=== PATIENT | female | born 1935 | race Caucasian/White ===

== ENCOUNTER → 2017-03-25 | Outpatient (CLI) | payer OTHER | LOC: BMCIMAGING 09:09 | PROVIDERS: ATTEND Internal Medicine Cardiovascular Disease | DX: I71.4 Abdominal aortic aneurysm, without rupture (principal) ==

== ENCOUNTER → 2017-03-30 | Outpatient (CLI) | payer OTHER ==
[~2017-03-30] MED LIST: IOPAMIDOL (ISOVUE 370) 100 ML BTL IV ONE
== END ==
LOC: FIMAGING 11:00
PROVIDERS: ATTEND Internal Medicine Cardiovascular Disease
DX: I71.4 Abdominal aortic aneurysm, without rupture (principal)
CPT/HCPCS: 74174; Q9967

== ENCOUNTER 2017-07-20 10:32 | Observation (INO) | payer OTHER ==
--- NOTE | 2017-07-20 11:28 | CPEKG ---
Heart Rate: 68 RR Interval: 882 P-R Interval: 160 QRSD Interval: 84 QT Interval: 376 QTC Interval: 400 P [place]: -27 QRS [place]: 111 T Wave [place]: 151 EKG Severity - ABNORMAL ECG - EKG Impression: SINUS RHYTHM EKG Impression: RIGHT AXIS DEVIATION EKG Impression: LOW VOLTAGE IN FRONTAL LEADS EKG Impression: NONSPECIFIC T ABNORMALITIES, LATERAL LEADS Electronically Signed By: Missael Bull 20-Jul-2017 12:07:41
--- NOTE | 2017-07-20 11:46 | EDPHY ---
H & P Time Seen by Provider: 07/20/17 11:31 HPI/ROS: CHIEF COMPLAINT: Chest heaviness and fatigue HISTORY OF PRESENT ILLNESS: Patient has history of coronary disease with last stented in January of 2016 with 2 in her LAD, had angiography in May of last year which showed patency of all stents. She presents with 3 weeks of fatigue and jaw tightness with exertion which is much worse over the past 2 days. Associated with her arms and legs feeling heavy including difficulty picking up grocery bags on Wednesday of this week. Symptoms worse with exertion and moderate to severe in severity. She did attend the [employer] game on Wednesday and walked without that much difficulty but it has been worse over the past 48 hours. REVIEW OF SYSTEMS: Eye: no change in vision ENT: no sore throat Cardiac: No palpitations or syncope Pulmonary: No coughing but mild shortness of breath with exertion Abdomen: no vomiting, diarrhea, abdominal pain, does have some nausea Musculoskeletal: no back pain Skin: no rash Neuro: no headache Constitutional: no fever : no urinary symptoms A comprehensive 10 point review of systems is otherwise negative aside from elements mentioned in the history of present illness. PAST MEDICAL HISTORY: Coronary disease with stenting as noted above, hypercholesterolemia, appendectomy, hysterectomy. Social history: Nonsmoker here with her son General Appearance: Alert and conversant, cooperative. Eyes: No scleral icterus. ENT, Mouth: Normal mucous membranes. Respiratory: Normal respiratory effort, breath sounds equal, lungs are clear to auscultation. Cardiovascular: Regular rate and rhythm. Gastrointestinal: Abdomen is soft and non tender. Neurological: Alert and oriented x3. Normally conversant. Face symmetric, normal movement and sensation in all extremities. Skin: Warm and dry, no rashes. Musculoskeletal: No peripheral edema and no joint swelling. No calf tenderness Psychiatric: Not agitated. Emergency Department course/MDM: No aspirin as the patient is on Plavix. Moderate suspicion for acute coronary syndrome. Plan for admission with cardiology consultation. Smoking Status: Light smoker Constitutional: Initial Vital Signs Temperature (C) 36.5 C 07/20/17 10:48 Heart Rate 78 07/20/17 10:48 Respiratory Rate 18 07/20/17 10:48 Blood Pressure 108/73 07/20/17 10:48 O2 Sat (%) 94 07/20/17 10:48 O2 Delivery Mode Room Air Allergies/Adverse Reactions: No Known Allergies Allergy (Verified 07/20/17 10:47) Home Medications: Medication Instructions Recorded Aspirin EC [Aspirin EC 81 mg (*)] 81 mg PO DAILY 06/27/13 Atorvastatin Calcium [Lipitor 10 10 mg PO DAILY 06/27/13 mg (*)] Levothyroxine [Synthroid 88 mcg 88 mcg PO HS 06/27/13 (*)] Multivitamins [Multivitamin (*)] 1 tab PO DAILY 06/27/13 Cholecalciferol Vit D3 [Vitamin D3 1,000 units PO DAILY 01/15/16 (*)] [place]-3 Fatty Acids [Fish Oil 1000 1,000 mg PO DAILY 01/15/16 mg (*)] Ascorbic Acid [Vitamin C 500 mg 500 mg PO DAILY 05/26/16 (*)] Carboxymethylcellulose 1% [Refresh 1 drop EACHEYE DAILY PRN 05/26/16 Celluvisc (*)] Clopidogrel Bisulfate [Plavix (*)] 75 mg PO Q2D 05/26/16 Herbals/Supplements -Info Only 1 ea PO DAILY 05/26/16 Melatonin [Melatonin 3 MG (*)] 3 mg PO HS 05/26/16 celeCOXIB [CeleBREX] 100 mg PO DAILY 05/26/16 Medical Decision Making - Diagnostics EKG Interpretation: 12-lead EKG interpreted by me; official reading is in trace master. My interpretation is sinus rhythm rate 68 with right axis and low voltage in frontal leads. Imaging Results: Imaging Impressions Chest X-Ray 07/20/17 11:46 Impression: Stable chest. 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 Differential Diagnosis: Differential considered including but not limited to anemia, metabolic abnormality, unstable angina, pulmonary or dental infection. - Data Points Laboratory Results: Laboratory Results 07/20/17 11:46 07/20/17 11:46 07/20/17 07/20/17 11:46 11:46 WBC 13.31 10^3/uL H 10^3/uL (3.80-9.50) RBC 5.17 10^6/uL 10^6/uL (4.18-5.33) Hgb 16.5 g/dL H g/dL (12.6-16.3) Hct 49.5 % H % (38.0-47.0) MCV 95.7 fL fL (81.5-99.8) MCH 31.9 pg pg (27.9-34.1) MCHC 33.3 g/dL g/dL (32.4-36.7) RDW 13.9 % % (11.5-15.2) Plt Count 263 10^3/uL 10^3/uL (150-400) MPV 10.4 fL fL (8.7-11.7) Neut % (Auto) 73.5 % % (39.3-74.2) Lymph % (Auto) 19.5 % % (15.0-45.0) [place] % (Auto) 5.3 % % (4.5-13.0) Eos % (Auto) 0.4 % L % (0.6-7.6) Baso % (Auto) 0.8 % % (0.3-1.7) Nucleat RBC Rel Count 0.0 % % (0.0-0.2) Absolute Neuts (auto) 9.79 10^3/uL H 10^3/uL (1.70-6.50) Absolute Lymphs (auto) 2.60 10^3/uL 10^3/uL (1.00-3.00) Absolute Monos (auto) 0.71 10^3/uL 10^3/uL (0.30-0.80) Absolute Eos (auto) 0.05 10^3/uL 10^3/uL (0.03-0.40) Absolute Basos (auto) 0.10 10^3/uL 10^3/uL (0.02-0.10) Absolute Nucleated RBC 0.00 10^3/uL 10^3/uL (0-0.01) Immature Gran % 0.5 % % (0.0-1.1) Immature Gran # 0.06 10^3/uL 10^3/uL (0.00-0.10) Sodium 141 mEq/L mEq/L (134-144) Potassium 4.3 mEq/L mEq/L (3.5-5.2) Chloride 105 mEq/L mEq/L (97-110) Carbon Dioxide 25 mEq/l mEq/l (22-31) Anion Gap 11 mEq/L mEq/L (8-16) BUN 24 mg/dL H mg/dL (7-23) Creatinine 1.1 mg/dL H mg/dL (0.6-1.0) Estimated GFR 47 Glucose 103 mg/dL H mg/dL (70-100) Calcium 9.7 mg/dL mg/dL (8.5-10.4) Troponin I < 0.012 ng/mL ng/mL (0.000-0.034) Departure - Departure Disposition: [facility] Inpatient Acute Clinical Impression: Neck pain, bilateral, Unstable angina Condition: Good
[2017-07-20 11:52] LABS: % IMMATURE GRANULYOCYTES 0.5 % (0.0-1.1); ABSOLUTE IMMATURE GRANULOCYTES 0.06 10^3/uL (0.00-0.10); ADD DIFF? NO; ADD MORPH? NO; ADD SCAN? NO; ATYPICAL LYMPHOCYTE FLAG 0 (0-99); FRAGMENT RBC FLAG 0 (0-99); HEMATOCRIT 49.5 % (38.0-47.0); HEMOGLOBIN 16.5 g/dL (12.6-16.3); LEFT SHIFT FLG 0 (0-99); LIPEMIA HEMOLYSIS FLAG 80 (0-99); MEAN CELL HEMOGLOBIN 31.9 pg (27.9-34.1); MEAN CELL HEMOGLOBIN CONCENTR. 33.3 g/dL (32.4-36.7); MEAN CELL VOLUME 95.7 fL (81.5-99.8); MEAN PLATELET VOLUME 10.4 fL (8.7-11.7); PLATELET CLUMPS FLAG 10 (0-99); PLATELET COUNT 263 10^3/uL (150-400); RED BLOOD CELL COUNT 5.17 10^6/uL (4.18-5.33); RED CELL DISTRIBUTION WIDTH 13.9 % (11.5-15.2)
[2017-07-20 12:01] LABS: ANION GAP 11 mEq/L (8-16); CALCIUM 9.7 mg/dL (8.5-10.4); CARBON DIOXIDE 25 mEq/l (22-31); CHLORIDE 105 mEq/L (97-110); CREATININE 1.1 mg/dL (0.6-1.0); GLOMERULAR FILTRATION RATE 47; GLUCOSE 103 mg/dL (70-100); POTASSIUM 4.3 mEq/L (3.5-5.2); SODIUM 141 mEq/L (134-144)
[2017-07-20 12:13] LABS: TROPONIN I < 0.012 ng/mL (0.000-0.034)
[2017-07-20] MEDS ORDERED: ONDANSETRON 4 MG/2 ML VIAL IVP PRN (14:31)
[2017-07-20] MEDS ORDERED: ACETAMINOPHEN 325 MG TAB PO PRN (14:31)
[2017-07-20] MEDS ORDERED: ONDANSETRON DISINTEGRATING 4 MG TAB PO PRN (14:31)
[2017-07-20] MEDS ORDERED: CARBOXYMETHYLCELLULOSE 1% 0.4 ML DROPERETTE EACHEYE PRN (14:33)
[2017-07-20] MEDS: ENOXAPARIN 40 MG/0.4 ML SYR SC SCH (14:45)
[2017-07-20] MEDS ORDERED: diphenhydrAMINE 25 MG CAP PO ONE (14:51)
[2017-07-20] MEDS ORDERED: TEMAZEPAM 15 MG CAP PO PRN (14:51)
[2017-07-20] MEDS ORDERED: DIAZEPAM 5 MG TAB PO ONE (14:51)
[2017-07-20] MEDS ORDERED: FAMOTIDINE 20 MG TAB PO ONE (14:51)
[2017-07-20] MEDS ORDERED: NITROGLYCERIN 0.4 MG BTL SL PRN (14:51)
[2017-07-20] MEDS ORDERED: LIDOCAINE 1% 300 MG/30 ML SDV ONE (14:52)
[2017-07-20] MEDS ORDERED: fentaNYL 100 MCG/2 ML INJ ONE (14:53)
[2017-07-20] MEDS ORDERED: HEPARIN 10,000 UNIT/10 ML MDV ONE (14:53)
[2017-07-20] MEDS ORDERED: VERAPAMIL 5 MG/2 ML VIAL ONE (14:53)
[2017-07-20] MEDS ORDERED: MIDAZOLAM 2 MG/2 ML VIAL ONE (14:53)
--- NOTE | 2017-07-20 14:53 | PDPROPOC ---
Sedation Plan of Care Sedation Plan of Care: vital signs stable, mental status noted, patient educated of risks, benefits, alternatives, patient can tolerate sedation ASA Classification: ASA 2 Mallampati Score: Class 1 332 Rule: 332
[2017-07-20] MEDS ORDERED: IOPAMIDOL (ISOVUE-370) 150 ML BTL IV ONE (14:54)
--- NOTE | 2017-07-20 14:57 | PDCARCONS ---
Cardiology Consult Reason for Consult: Chest pain Chief Complaint: Jaw pain and fatigue Requesting Physician: Hospitalist History of Present Illness: 81yo female, known CAD s/p PCI with several week history of progressive shortness of breath, chest tightness, fatigue and jaw pain, typical of how she felt prior to PCI. Denies PND, orthopne. No palpitations or syncope. No other illness recently. History Information - Allergies/Home Medication List Allergies/Adverse Reactions: No Known Allergies Allergy (Verified 07/20/17 10:47) Home Medications: Aspirin EC [Aspirin EC 81 mg (*)] 81 mg PO DAILY 06/27/13 [Last Taken 07/20/17 10:00] Atorvastatin Calcium [Lipitor 10 mg (*)] 10 mg PO DAILY 06/27/13 [Last Taken 03/31 10:00] Levothyroxine [Synthroid 88 mcg (*)] 88 mcg PO HS 06/27/13 [Last Taken 07/19/17 22:30] Multivitamins [Multivitamin (*)] 1 tab PO DAILY 06/27/13 [Last Taken 07/20/17 10 :00] Cholecalciferol Vit D3 [Vitamin D3 (*)] 1,000 units PO DAILY 01/15/16 [Last Taken 07/20/17 10:00] [place]-3 Fatty Acids [Fish Oil 1000 mg (*)] 1,000 mg PO DAILY 01/15/16 [Last Taken 07/20/17 10:00] Ascorbic Acid [Vitamin C 500 mg (*)] 500 mg PO DAILY 05/26/16 [Last Taken 10:00] Carboxymethylcellulose 1% [Refresh Celluvisc (*)] 1 drop EACHEYE DAILY PRN 05/26 [Last Taken 07/20/17 10:00] Clopidogrel Bisulfate [Plavix (*)] 75 mg PO Q2D 05/26/16 [Last Taken 07/19/17 10 :00] Herbals/Supplements -Info Only 1 ea PO DAILY 05/26/16 [Last Taken Unknown] Melatonin [Melatonin 3 MG (*)] 3 mg PO HS 05/26/16 [Last Taken 07/19/17 22:00] celeCOXIB [CeleBREX] 100 mg PO DAILY 05/26/16 [Last Taken 07/20/17 10:00] I have personally reviewed and updated: family history, medical history, social history, surgical history - Past Medical History coronary artery disease - Surgical History Reports: coronary stent - Family History Positive for: non-pertinent - Social History Smoking Status: Light smoker Cardiac History - Cardiac History Past Cardiac History: CAD Cardiac Risk Factors: lipidemia Timing/Duration: Weeks Severity: moderate Severity Scale: 7 Location: substernal Activities at Onset: activity Modifying Factors: improves with: exercise, rest Associated Symptoms: loss of appetite, malaise, shortness of breath, weakness MIRNA Risk Evaluation age greater or equal to 65: yes greater or equal to 3 CAD risk factors: yes known CAD(stenosis greater or eqaul to 50%): yes ASA use in past 7 days: yes severe angina(greater or equal to 2 episodes in 24hrs): yes EKG ST changes greater or equal to 0.5mm: no positive cardiac marker: no Total Score: 5 MIRNA Score: 26.2% risk Physical Exam Temp Pulse Resp BP Pulse Ox 36.6 C 76 17 153/79 H 99 07/20/17 14:49 07/20/17 14:49 07/20/17 14:49 07/20/17 14:49 07/20/17 14:49 O2 (L/minute) 99 Lab and Imaging 07/20/17 11:46 07/20/17 11:46 WBC 13.31 10^3/uL (3.80-9.50) H 07/20/17 11:46 RBC 5.17 10^6/uL (4.18-5.33) 07/20/17 11:46 Hgb 16.5 g/dL (12.6-16.3) H 07/20/17 11:46 Hct 49.5 % (38.0-47.0) H 07/20/17 11:46 MCV 95.7 fL (81.5-99.8) 07/20/17 11:46 MCH 31.9 pg (27.9-34.1) 07/20/17 11:46 MCHC 33.3 g/dL (32.4-36.7) 07/20/17 11:46 RDW 13.9 % (11.5-15.2) 07/20/17 11:46 Plt Count 263 10^3/uL (150-400) 07/20/17 11:46 MPV 10.4 fL (8.7-11.7) 07/20/17 11:46 Neut % (Auto) 73.5 % (39.3-74.2) 07/20/17 11:46 Lymph % (Auto) 19.5 % (15.0-45.0) 07/20/17 11:46 [place] % (Auto) 5.3 % (4.5-13.0) 07/20/17 11:46 Eos % (Auto) 0.4 % (0.6-7.6) L 07/20/17 11:46 Baso % (Auto) 0.8 % (0.3-1.7) 07/20/17 11:46 Nucleat RBC Rel Count 0.0 % (0.0-0.2) 07/20/17 11:46 Absolute Neuts (auto) 9.79 10^3/uL (1.70-6.50) H 07/20/17 11:46 Absolute Lymphs (auto) 2.60 10^3/uL (1.00-3.00) 07/20/17 11:46 Absolute Monos (auto) 0.71 10^3/uL (0.30-0.80) 07/20/17 11:46 Absolute Eos (auto) 0.05 10^3/uL (0.03-0.40) 07/20/17 11:46 Absolute Basos (auto) 0.10 10^3/uL (0.02-0.10) 07/20/17 11:46 Absolute Nucleated RBC 0.00 10^3/uL (0-0.01) 07/20/17 11:46 Immature Gran % 0.5 % (0.0-1.1) 07/20/17 11:46 Immature Gran # 0.06 10^3/uL (0.00-0.10) 07/20/17 11:46 Sodium 141 mEq/L (134-144) 07/20/17 11:46 Potassium 4.3 mEq/L (3.5-5.2) 07/20/17 11:46 Chloride 105 mEq/L (97-110) 07/20/17 11:46 Carbon Dioxide 25 mEq/l (22-31) 07/20/17 11:46 Anion Gap 11 mEq/L (8-16) 07/20/17 11:46 BUN 24 mg/dL (7-23) H 07/20/17 11:46 Creatinine 1.1 mg/dL (0.6-1.0) H 07/20/17 11:46 Estimated GFR 47 07/20/17 11:46 Glucose 103 mg/dL (70-100) H 07/20/17 11:46 Calcium 9.7 mg/dL (8.5-10.4) 07/20/17 11:46 Troponin I < 0.012 ng/mL (0.000-0.034) 07/20/17 11:46 Visualized and Interpreted Chest x-ray results: Yes EKG Interpretation: Positive for: other (low voltage. no st changes) A/P Assessment: 81 yo known, CAD hx. of PCI with recurrent angina. Low voltage on ecg unclear etiology. Will plan for a dx. angiogram from the left wrist. Echo to exclude pericardial effusion. Broaden DDX as needed. Plan: 1. Angiogram. 2. Echo Review of Systems - Review of Systems Constitutional: malaise, weakness. denies: chills, diaphoresis, fever EENTM: no symptoms reported Respiratory: shortness of breath. denies: cough, orthopnea, wheezing Cardiac: chest pain. denies: edema, irregular heart rate, lightheadedness, palpitations, syncope Gastrointestinal/Abdominal: no symptoms reported, other (loss of appetite) Genitourinary: no symptoms Musculoskelatal: no symptoms Skin: no symptoms Neurological: no symptoms Hematologic/Lymphatic: no symptoms reported Immunologic/allergic: no symptoms reported
[2017-07-20] MEDS ORDERED: NS 1,000 ML IV SCH (15:00)
--- NOTE | 2017-07-20 15:12 | GHP ---
[f rep st] HISTORY AND PHYSICAL DATE OF ADMISSION: 07/20/2017 CHIEF COMPLAINT: Fatigue and jaw tightness. HISTORY OF PRESENT ILLNESS: An 81-year-old female with a history of coronary artery disease, status post LAD stenting x2 in 2016, who presents with symptoms that she says are similar to her last myoc ardial infarction. The patient reports, over the course of the last 2-3 weeks, experiencing progres sing fatigue and lethargy, which is uncharacteristic for her, as well as progressing jaw tightness t hat is similar to her last AK. Patient denies any specific chest pain. Has had the sensation of pa lpitations, but when she checks her pulse, it is not rapid. Notes very dramatic fatigue with minima l exertion, requiring her to sit even after simple grocery shopping, which she says typically she wo uld be able to do on her own. Additionally describes feeling unsteady on her feet. When she has th e symptoms of fatigue, she is also experiencing shortness of breath, however denies any orthopnea or PND. Patient denies any changes in her bowel habits, diarrhea, blood in her stools, dysuria, hemat uria, lower extremity edema, vision changes, fevers, or chills. PAST MEDICAL HISTORY: 1. Coronary artery disease, status post LAD stenting. 2. Hypothyroidism. 3. Osteoarthritis. 4. 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 SOCIAL HISTORY: Positive for tobacco x70 years; still smoking 5 cigarettes a day. Daily alcohol 1- 2 drinks. FAMILY HISTORY: Positive for coronary artery disease. Father with an AK in his 30s. ADVANCED DIRECTIVES: Patient is full code, full tube. Her sons would be her medical decision-maker s. REVIEW OF SYSTEMS: A 10-point review of systems is negative with the exception of that reported in the HPI. PHYSICAL EXAMINATION: VITAL SIGNS: Blood pressure is 141/78, heart rate 78, respiratory rate 18, 9 5% on room air, 36.5. GENERAL: This is a healthy-appearing elderly female, sitting up in bed. TARA NT: Notable for moist mucous membranes. Eye exam is negative for any icterus. CARDIAC: Regular ra te and rhythm. No murmurs are noted. PULMONARY: Clear to auscultation bilaterally. GASTROINTESTI NAL: Positive bowel sounds. Abdomen is soft. MUSCULOSKELETAL: Negative for any lower extremity ed ralph. SKIN: Notable for scattered bruising in various stages of healing. NEUROLOGIC: She is alert and oriented x3. PSYCHIATRIC: She is grumpy but cooperative. DATA: White count 13.3 (appears near baselines recently), hematocrit 49.5, platelet count 263. Cre atinine 1.1 (last checked at 1.2). Troponin less than 0.012. Chest x-ray, which I personally revie wed and interpreted, shows no acute infiltrates or edema. EKG, which I personally reviewed and inte rpreted, shows sinus rhythm, normal axis, and normal intervals with no acute ST-T changes. Of note, there is very low voltage in the inferior leads, partially similar compared to old. ASSESSMENT AND PLAN: This is an 81-year-old female with known coronary artery disease presenting wi th jaw pain. 1. Atypical pain/jaw pain, certainly concerning for an anginal equivalent based on the fact that mi meyer had similar symptoms with her previous myocardial infarction. Initial troponin and EKG are re assuring. Have consulted Cardiology. Will rule the patient out this evening and suspect move forwa rd with likely Lexiscan. If the patient's troponin bumps, suspect patient will be a candidate for c ardiac catheterization. Cardiology will follow along. Will continue her outpatient cardiac medicat ions. 2. Hypertension. Patient's blood pressures are currently controlled well. Continue her home medic ations. 3. Hypothyroidism. Will continue her home dosing of levothyroxine. 4. Coronary artery disease. Patient is on aspirin and Plavix q.2 days, as well as atorvastatin. T hese will be continued overnight. ,. 5. Prophylaxis with Lovenox. 6. Diet. Cardiac. DISPOSITION: I expect in less than 2 midnights if the patient rules out and has normal stress testi ng in the morning. I have discussed the case with Cardiology. They will consult and leave recommen dations related to risk stratification. /[id number]/MODL
[2017-07-20 15:15] LABS: INR 0.98 (0.83-1.16); PROTIME(PATIENT) 12.9 SEC (12.0-15.0)
[2017-07-20 15:16] LABS: APTT 25.3 SEC (23.0-38.0)
[2017-07-20 15:17] LABS: CHOLESTEROL 164 mg/dL (140-220); CHOLESTEROL/HDL RATIO 3.09 RATIO (1.00-4.44); HIGH DENSITY LIPOPROTEIN 53 mg/dL (40-85); LDL/HDL RATIO 1.25 RATIO (1.00-3.22); LOW DENSITY LIPOPROTEIN 66 mg/dL (80-100); MAGNESIUM 2.1 mg/dL (1.6-2.3); NON-HIGH DENSITY LIPOPROTEIN 111 mg/dL (90-129); TRIGLYCERIDE 226 mg/dL (35-135); VERY LOW DENSITY LIPOPROTEINS 45 mg/dL (8-25)
[2017-07-20] MEDS ORDERED: ATROPINE SULFATE 1 MG/10 ML SYR IVP PRN (15:44)
--- NOTE | 2017-07-20 15:48 | PDDXCAT ---
Diagnostic Cath Note - . Date: 07/20/17 [employer] Supervisor: Malvin Indication: CCC Class III and IV angina on medical treatment - Procedure Access: left wrist Procedure: left heart catheterization, coronary angiography, left ventriculogram - Materials Left Heart Cath size: 5F Left Heart Cath materials: JL3.5, JR4.0, pigtail - Findings-Left Heart Catheterization LM: Unobstructed LAD: Stents widely patent with luminal irregularities LCX: Stents widely patent with luminal irregularities RCA: Dominant: Luminal irregularities 20-30%. EDP: 10 mm of mercury LVEF: 60% with lateral hypokinesis Wall motion: Anterolateral hypokinetic segment Complications: None Estimated blood loss: <50ml Closure method: TR Band Assessment: 1. Widely patent site of prior stenting involving the LAD and circumflex. 2. Moderate nonobstructive atherosclerotic cardiovascular disease. 3. Normal left ventricular systolic function with normal filling pressures. Plan: Continue secondary prevention clinical follow-up. Broad differential diagnosis for symptom complex. Patient Problems: Problems Problem Status Onset Unstable angina Acute Coronary artery disease Acute
[2017-07-20] MEDS ORDERED: MELATONIN 3 MG TAB PO SCH (21:00)
[2017-07-20] MEDS ORDERED: LEVOTHYROXINE 88 MCG TAB PO SCH (21:00)
[2017-07-21 04:55] LABS: ANION GAP 9 mEq/L (8-16); CARBON DIOXIDE 25 mEq/l (22-31); CHLORIDE 105 mEq/L (97-110); CREATININE 1.1 mg/dL (0.6-1.0); GLOMERULAR FILTRATION RATE 47; GLUCOSE 97 mg/dL (70-100); POTASSIUM 4.3 mEq/L (3.5-5.2); SODIUM 139 mEq/L (134-144)
[2017-07-21] MEDS: ENOXAPARIN 40 MG/0.4 ML SYR SC SCH (08:49)
[2017-07-21] MEDS ORDERED: MULTIVITAMINS 1 EACH TAB PO SCH (09:00)
[2017-07-21] MEDS ORDERED: Herbals/Supplements -Info Only PO SCH (09:00)
[2017-07-21] MEDS ORDERED: ASPIRIN EC 81 MG TAB PO SCH (09:00)
[2017-07-21] MEDS ORDERED: ATORVASTATIN CALCIUM 10 MG TAB PO SCH (09:00)
[2017-07-21] MEDS ORDERED: ASCORBIC ACID 500 MG TAB PO SCH (09:00)
[2017-07-21] MEDS ORDERED: OMEGA-3 FATTY ACIDS 1,000 MG CAP PO SCH (09:00)
[2017-07-21] MEDS ORDERED: CHOLECALCIFEROL VIT D3 1,000 UNITS TAB PO SCH (09:00)
[2017-07-21] MEDS ORDERED: IOPAMIDOL (ISOVUE 370) 100 ML BTL IV ONE (11:36)
[2017-07-21 12:07] VITALS: BP 110/66; PULSE 79; RESP 14; TEMP 98.5; O2SAT 92
--- NOTE | 2017-07-21 16:47 | ECHO ---
[id number] + + [address] : : [place] [address] : : [phone] + + Adult Echocardiographic Report + ---------+ :Name: CASSIDY JOEL BStudy Date: 07/20/2017 04:22 PM : : Hospital Admission Number: [id number] tion: CVC: :: 1935 Gender: Female Height: 66 i n : :Age: 81 yrs Race: WH Weight: 135 lb : :Reason For Study: Low voltage of EKG : : BSA: 1.7 met ers2 : + ---------+ MMode/2D Measurements & Calculations IVSd: 0.64 cm LVIDd: 4.5 cm FS: 24.7 % Ao root diam: LVPWd: 0.83 cm LVIDs: 3.4 cm EDV(Teich): 3.0 cm 90.1 ml LA dimension: ESV(Teich): 2.5 cm 45.8 ml EF(Teich): 49.1 % LVLd ap4: 7.5 cm SV(MOD-sp4): EDV(MOD-sp4): 22.0 ml 34.0 ml LVLs ap4: 6.3 cm ESV(MOD-sp4): 12.0 ml EF(MOD-sp4): 64.7 % Normal Measurement Values: + + :LVIDd (3.5-5.7cm) IVSd (0.6-1.1cm) LVPWd (0.6-1.1cm) Aortic Root (2.0-3.7cm)Left Atrium (1.5-4.0cm): :LV Vol(d) (76-115ml) LV Vol(s) (29-48ml) Ejec Fraction (50-65%)PV Hugo (0.6- 1.2m/s) TV Hugo (0.4-1.0m/s) : :MV E Hugo (0.8-1.0m/s)MV A Hugo (0.3-1.0m/s)LVOT Hugo (0.7-1.2m/s) Asc Ao Hugo ( 0.9-1.8m/s) : + + Doppler Measurements & Calculations MV E max hugo: 50.8 cm/sec Ao mean P.0 mmHg MV A max hugo: 69.1 cm/sec Ao V2 mean: 65.4 cm/sec MV E/A: 0.74 Ao V2 VTI: 19.3 cm Left Ventricle The left ventricle is normal in size. There is normal left ventricular wall thickness. Left ventricular systolic function is normal. Ejection Fraction = 60-65%. No regional wall motion abnormalities noted. Right Ventricle The right ventricle is normal in size and function. Atria The left atrial size is normal. Right atrial size is normal. The interatrial septum is intact with no evidence for an atrial septal defect. Mitral Valve The mitral valve is normal in structure and function. There is no evidence of mitral valve prolapse. There is no mitral valve stenosis. There is mild mitral regurgitation. Tricuspid Valve Normal tricuspid valve. Aortic Valve The aortic valve opens well. There is no aortic stenosis. Trace aortic regurgitation. Pulmonic Valve The pulmonic valve is normal in structure and function. There is no pulmonic valvular regurgitation. Great Vessels The aortic root is normal size. Pericardium/Pleural trivial pericardial effusion. Conclusion A complete two-dimensional transthoracic echocardiogram was performed (2D, M-mode, Doppler and color flow Doppler). Left ventricular systolic function is normal. Ejection Fraction = 60-65%. There is mild mitral regurgitation. Trace aortic regurgitation. trivial pericardial effusion. Final Reading Physician: Vanessa Wellington signed on 07/21/2017 04:46 PM Ordering Physician: KARMEN LAST Performed By: Otilia Márquez RDCS
--- NOTE | 2017-07-21 18:12 | GDS ---
[f rep st] DISCHARGE SUMMARY DISCHARGE DIAGNOSES: 1. Chest pain and dyspnea, not related to coronary artery disease. 2. History of coronary artery disease. 3. Hypothyroidism. HISTORY: This is an 81-year-old female with a history of coronary artery disease, who presented with symptoms that were similar to previous AR. She had lethargy and some pain in her jaw. HOSPITAL COURSE: Patient was admitted and had an angiogram done by Cardiology. She had patent stent s and no new obstructive coronary disease. She also had a CT scan of her chest, which did not show p ulmonary embolism but did show a little bit of emphysema. She is very much wanting to go home, and s he will be discharged home today. /[id number]/MODL
[2017-07-22] MEDS ORDERED: CLOPIDOGREL BISULFATE 75 MG TAB PO SCH (09:00)
== END 2017-07-21 14:46 | disposition home or self-care (01) ==
LOC: F2W 17:27
PROVIDERS: ADMIT Hospitalist; ATTEND Internal Medicine
PROC: B2151ZZ Fluoroscopy of Left Heart using Low Osmolar Contrast (ICD-10-PCS; principal; 2017-07-20)
PROC: B2111ZZ Fluoroscopy of Multiple Coronary Arteries using Low Osmolar Contrast (ICD-10-PCS; principal; 2017-07-20)
PROC: 4A023N7 Measurement of Cardiac Sampling and Pressure, Left Heart, Percutaneous Approach (ICD-10-PCS; principal; 2017-07-20)
DX: I25.119 Atherosclerotic heart disease of native coronary artery with unspecified angina pectoris (principal); I71.4 Abdominal aortic aneurysm, without rupture; J84.10 Pulmonary fibrosis, unspecified; E03.9 Hypothyroidism, unspecified; M54.2 Cervicalgia; M19.90 Unspecified osteoarthritis, unspecified site; F17.210 Nicotine dependence, cigarettes, uncomplicated; I10 Essential (primary) hypertension; Z95.5 Presence of coronary angioplasty implant and graft; Z82.49 Family history of ischemic heart disease and other diseases of the circulatory system
CPT/HCPCS: 71020; 71275; 93005; 93306; 93458; 97161; 97165; 99285; C1769; G0378; G8978; G8979; G8980; G8987; G8988; G8989; J1644; J1650; J2250; J3010; Q9967

== ENCOUNTER 2018-03-14 10:43 | Observation (INO) | payer OTHER ==
--- NOTE | 2018-03-14 10:58 | CPEKG ---
Heart Rate: 89 RR Interval: 674 P-R Interval: 160 QRSD Interval: 82 QT Interval: 356 QTC Interval: 434 P [place]: 41 QRS [place]: 47 T Wave [place]: 72 EKG Severity - BORDERLINE ECG - EKG Impression: SINUS RHYTHM EKG Impression: PROBABLE LEFT ATRIAL ABNORMALITY Electronically Signed By: Peggy Peck 14-Mar-2018 14:52:47
[2018-03-14] MEDS ORDERED: NS 500 ML IV ONE (10:59)
[2018-03-14 11:11] LABS: PLATELET COUNT 283 10^3/uL (150-400)
--- NOTE | 2018-03-14 11:15 | EDPHY ---
H & P Time Seen by Provider: 03/14/18 11:01 HPI/ROS: HPI Shortness of breath, arms and legs feel heavy. 82-year-old female by private vehicle with . This patient is a patient of Dr. Lindsay. She comes the emergency department complaining of progressively worsening shortness of breath with exertion over the last 2-3 weeks. She reports over the last 2 days having a sensation of tightness in her left jaw. She reports this is similar to how she felt when she had her 1st heart attack number of years ago. She also reports having a sensation of her arms and legs feeling heavy and also generalized fatigue. No chest pain. She was told to come to the emergency department by her primary care physician. She reports that she sleeps on her side at night. She does use home oxygen at night only. ROS: Constitutional: No fever, no chills. As above. Eyes: No discharge. No changes in vision. ENT: No sore throat. No nasal congestion or rhinorrhea. Respiratory: No cough. As above. Cardiac: No chest pain, no palpitations. Gastrointestinal: No abdominal pain, no vomiting, no diarrhea. Genitourinary: No hematuria. No dysuria or increased frequency with urination. Musculoskeletal: No back pain. No neck pain. No myalgias or arthralgias. As above. Skin: No rashes. Neurological: No headache. No focal weakness or altered sensation. Past medical history: Coronary artery disease with multiple stents. Recent stents placed LAD 02/12/2016. Her welt insole channeler is Dr. Jose Dhillon. Hyperlipidemia, appendectomy, hysterectomy. Social history: Here with her son who is [id number]. She currently has a DNR DNI status. Nonsmoker. No alcohol. Physical Exam: General Appearance: Alert, no distress. This patient is responding to questions appropriately and in full sentences. This patient appears well- hydrated and well-nourished. Eyes: Pupils equal and round no pallor or injection. No lid edema, erythema or injection. Respiratory: There are no retractions, lungs are clear to auscultation with good air movement bilaterally. Cardiovascular: Regular rate and rhythm. No murmur. Gastrointestinal: Abdomen is soft and nontender, no masses, bowel sounds normal. No focal tenderness at McBurney's point. No Crocker sign. Neurological: Motor sensory function is grossly intact. Cranial nerves are normal. Gait is normal. Skin: Warm and dry, no rashes. Musculoskeletal: Neck is supple and nontender. As above. Extremities are symmetrical. All joints range without pain or impingement. Psychiatric: No agitation. No depression. Database: EKG: EKG time is 10:56 a.m.; EKG shows a narrow complex normal sinus rhythm with a ventricular rate of 89. The TN, QRS, QT intervals are within normal limits. There are no ST-T wave changes indicative of ischemic or injury pattern. No evidence of right heart strain. Interpreted by me. Imaging: Chest x-ray AP portable; the cardiac mediastinal silhouette is unremarkable. No evidence of infiltrate or pneumothorax. Chronic airway disease. No acute cardiopulmonary disease process noted. Interpreted by me. CT angiogram of chest: No evidence of pulmonary embolism, chronic interstitial lung disease noted. Left upper lobe lesion noted to be larger than previous study. Please see radiologist's report for further details. Results discussed with staff radiologist Dr. Jaylen Grossman. Procedures: Emergency department course: IV placed. She was placed on a panel monitor. Vital signs reviewed. EKG obtained and reviewed by myself. She is currently comfortable and denies any complaints. 12:55 p.m., patient re-evaluated. Resting comfortably at this time. Denies any shortness of breath or chest pain at this time. Discussed results of emergency department workup with her and her son. All of their questions were answered. Hospitalist was paged. Patient endorses admission. 1:10 p.m., spoke with hospitalist service. Case discussed in detail. Patient accepted for admission by Dr. Hernandez. Her remaining emergency department course under my care has been uneventful. She was admitted in stable condition to the hospitalist service. Differential Diagnosis: The differential diagnosis on this patient includes but is not limited to CHF, pulmonary embolism, pneumonia, acute coronary syndrome, pneumonia. This represents a partial list of diagnoses considered. These considerations are based on history, physical exam, past history, reassessment and diagnostic testing. Smoking Status: Light smoker Constitutional: Initial Vital Signs Temperature (C) 36.5 C 03/14/18 10:48 Heart Rate 92 03/14/18 10:48 Respiratory Rate 18 03/14/18 10:48 Blood Pressure 94/73 L 03/14/18 10:48 O2 Sat (%) 91 L 03/14/18 10:48 O2 Delivery Mode Room Air Allergies/Adverse Reactions: No Known Allergies Allergy (Verified 03/14/18 10:47) Home Medications: Medication Instructions Recorded Aspirin EC [Aspirin EC 81 mg (*)] 81 mg PO HS 06/27/13 Atorvastatin Calcium [Lipitor 10 10 mg PO DAILY10 06/27/13 mg (*)] Multivitamins [Multivitamin (*)] 1 tab PO DAILY10 06/27/13 Cholecalciferol Vit D3 [Vitamin D3 1,000 units PO DAILY10 01/15/16 (*)] [place]-3 Fatty Acids [Fish Oil 1000 1,000 mg PO DAILY10 01/15/16 mg (*)] Ascorbic Acid [Vitamin C 500 mg 500 mg PO DAILY10 05/26/16 (*)] Carboxymethylcellulose 1% [Refresh 1 drop EACHEYE BID 05/26/16 Celluvisc (*)] Herbals/Supplements -Info Only 1 ea PO DAILY 05/26/16 Folic Acid [Folic Acid 1 MG (*)] 1 mg PO DAILY10 03/14/18 Levothyroxine [Synthroid 88 mcg 88 mcg PO HS 03/14/18 (*)] celeCOXIB [Celebrex (*)] 200 mg PO DAILY10 03/14/18 Medical Decision Making - Diagnostics Imaging Results: Imaging Impressions Chest X-Ray 03/14/18 11:00 Impression: COPD with mild perihilar bronchitis and chronic bibasilar interstitial fibrosis. Chest/Thorax CTA 03/14/18 11:50 Impression: 1. No evidence of thrombopulmonary embolic disease. 2. Evidence of underlying interstitial lung disease with a stable appearance more predominant in both lower lobes. There is however a scar like focal density posteriorly in the left upper lobe toward the apex which has increased in size, now measuring 9 to 10 mm. Recommend PET scan for further evaluation to exclude a primary lung malignancy. 3. Incompletely visualized known abdominal aortic aneurysm. Evidence of atherosclerotic change in the thoracic aortocoronary arteries. Results called and discussed with Peggy Peck MD, at 03/14/2018, 13: 06. - Data Points Laboratory Results: Laboratory Results 03/14/18 11:00 03/14/18 11:00 03/14/18 03/14/18 03/14/18 12:10 11:00 11:00 WBC RBC Hgb Hct MCV MCH MCHC RDW Plt Count MPV Neut % (Auto) Lymph % (Auto) [place] % (Auto) Eos % (Auto) Baso % (Auto) Nucleat RBC Rel Count Absolute Neuts (auto) Absolute Lymphs (auto) Absolute Monos (auto) Absolute Eos (auto) Absolute Basos (auto) Absolute Nucleated RBC Immature Gran % Immature Gran # PT 13.2 SEC SEC (12.0-15.0) INR 0.98 (0.83-1.16) APTT 25.1 SEC SEC (23.0-38.0) D-Dimer 1.11 ug/mLFEU H ug/mLFEU (0.00-0.50) Sodium 143 mEq/L mEq/L (135-145) Potassium 4.5 mEq/L mEq/L (3.5-5.2) Chloride 103 mEq/L mEq/L (97-110) Carbon Dioxide 28 mEq/l mEq/l (22-31) Anion Gap 12 mEq/L mEq/L (8-16) BUN 32 mg/dL H mg/dL (7-23) Creatinine 1.2 mg/dL H mg/dL (0.6-1.0) Estimated GFR 43 Glucose 108 mg/dL H mg/dL (70-100) Calcium 9.6 mg/dL mg/dL (8.5-10.4) Creatine Kinase 30 IU/L IU/L (0-156) CK-MB (CK-2) Fraction 0.58 ng/mL ng/mL (0.00-3.19) Troponin I < 0.012 ng/mL ng/mL (0.000-0.034) NT-Pro-B Natriuret Pep 137 pg/mL pg/mL (0-450) Urine Color YELLOW Urine Appearance CLEAR Urine pH 7.0 (5.0-7.5) Ur Specific [place] 1.016 (1.002-1.030) Urine Protein NEGATIVE (NEGATIVE) Urine Ketones NEGATIVE (NEGATIVE) Urine Blood NEGATIVE (NEGATIVE) Urine Nitrate NEGATIVE (NEGATIVE) Urine Bilirubin NEGATIVE (NEGATIVE) Urine Urobilinogen NEGATIVE EU EU (0.2-1.0) Ur Leukocyte Esterase 1+ H (NEGATIVE) Urine RBC 1-3 /hpf /hpf (0-3) Urine WBC 1-3 /hpf /hpf (0-3) Ur Epithelial Cells TRACE /lpf /lpf (NONE-1+) Urine Glucose NEGATIVE (NEGATIVE) 03/14/18 11:00 WBC 14.89 10^3/uL H 10^3/uL (3.80-9.50) RBC 5.10 10^6/uL 10^6/uL (4.18-5.33) Hgb 16.1 g/dL g/dL (12.6-16.3) Hct 48.7 % H % (38.0-47.0) MCV 95.5 fL fL (81.5-99.8) MCH 31.6 pg pg (27.9-34.1) MCHC 33.1 g/dL g/dL (32.4-36.7) RDW 13.6 % % (11.5-15.2) Plt Count 283 10^3/uL 10^3/uL (150-400) MPV 9.9 fL fL (8.7-11.7) Neut % (Auto) 72.6 % % (39.3-74.2) Lymph % (Auto) 20.5 % % (15.0-45.0) M[place] % (Auto) 5.1 % % (4.5-13.0) Eos % (Auto) 0.6 % % (0.6-7.6) Baso % (Auto) 0.7 % % (0.3-1.7) Nucleat RBC Rel Count 0.0 % % (0.0-0.2) Absolute Neuts (auto) 10.81 10^3/uL H 10^3/uL (1.70-6.50) Absolute Lymphs (auto) 3.05 10^3/uL H 10^3/uL (1.00-3.00) Absolute Monos (auto) 0.76 10^3/uL 10^3/uL (0.30-0.80) Absolute Eos (auto) 0.09 10^3/uL 10^3/uL (0.03-0.40) Absolute Basos (auto) 0.10 10^3/uL 10^3/uL (0.02-0.10) Absolute Nucleated RBC 0.00 10^3/uL 10^3/uL (0-0.01) Immature Gran % 0.5 % % (0.0-1.1) Immature Gran # 0.08 10^3/uL 10^3/uL (0.00-0.10) PT INR APTT D-Dimer Sodium Potassium Chloride Carbon Dioxide Anion Gap BUN Creatinine Estimated GFR Glucose Calcium Creatine Kinase CK-MB (CK-2) Fraction Troponin I NT-Pro-B Natriuret Pep Urine Color Urine Appearance Urine pH Ur Specific [place] Urine Protein Urine Ketones Urine Blood Urine Nitrate Urine Bilirubin Urine Urobilinogen Ur Leukocyte Esterase Urine RBC Urine WBC Ur Epithelial Cells Urine Glucose Medications Given: Discontinued Medications Sodium Chloride (Ns) 500 mls @ 1,000 mls/hr IV EDNOW ONE PRN Reason: Protocol Stop: 03/14/18 11:28 Last Admin: 03/14/18 11:14 Dose: 500 mls Departure - Departure Disposition: [facility] Inpatient Acute Clinical Impression: Dyspnea, Hypoxia, History of coronary artery disease, Interstitial lung disease Referrals: Yael Chamberlain MD [Primary Care Provider] - As per Instructions
[2018-03-14 11:21] LABS: CREATINE KINASE 30 IU/L (0-156); INR 0.98 (0.83-1.16); PROTIME(PATIENT) 13.2 SEC (12.0-15.0)
[2018-03-14] MEDS ORDERED: IOPAMIDOL (ISOVUE 370) 100 ML BTL IV ONE (12:04)
[2018-03-14] MEDS ORDERED: ONDANSETRON 4 MG/2 ML VIAL IVP PRN (15:51)
[2018-03-14] MEDS ORDERED: ONDANSETRON DISINTEGRATING 4 MG TAB PO PRN (15:51)
[2018-03-14] MEDS ORDERED: ACETAMINOPHEN 325 MG TAB PO PRN (15:51)
--- NOTE | 2018-03-14 18:38 | PDGENHP ---
History and Physical - Chief Complaint fatigue, sob, jaw pain - History of Present Illness 82 yo F with PMH of CAD s/p LAD stent x 2 presenting with sxs that she states are similar to her prior [place] sxs including increased fatigue, sob with exertion and bilateral jaw pain. She notes these sxs have been present for the last several days and are worse with exertion, resolved with rest. She denies other s /s of illenss such as f/c/n/v. She states that this may all be related to getting older and if that is that case she is ok with that because she is ready to if this is her time. She would like treatment if this could be improved however. History Information - Allergies/Home Medication List Allergies/Adverse Reactions: No Known Allergies Allergy (Verified 03/14/18 10:47) Home Medications: Aspirin EC [Aspirin EC 81 mg (*)] 81 mg PO HS 06/27/13 [Last Taken 03/13/18] Atorvastatin Calcium [Lipitor 10 mg (*)] 10 mg PO DAILY10 06/27/13 [Last Taken 03/14/18] Multivitamins [Multivitamin (*)] 1 tab PO DAILY10 06/27/13 [Last Taken 03/14/18] Cholecalciferol Vit D3 [Vitamin D3 (*)] 1,000 units PO DAILY10 01/15/16 [Last Taken 03/14/18] [place]-3 Fatty Acids [Fish Oil 1000 mg (*)] 1,000 mg PO DAILY10 01/15/16 [Last Taken 03/14/18] Ascorbic Acid [Vitamin C 500 mg (*)] 500 mg PO DAILY10 05/26/16 [Last Taken ] Carboxymethylcellulose 1% [Refresh Celluvisc (*)] 1 drop EACHEYE BID 05/26/16 [ Last Taken 03/14/18] Herbals/Supplements -Info Only 1 ea PO DAILY 05/26/16 [Last Taken Unknown] Folic Acid [Folic Acid 1 MG (*)] 1 mg PO DAILY10 03/14/18 [Last Taken 03/14/18] Levothyroxine [Synthroid 88 mcg (*)] 88 mcg PO HS 03/14/18 [Last Taken 03/13/18] celeCOXIB [Celebrex (*)] 200 mg PO DAILY10 03/14/18 [Last Taken 03/14/18] I have personally reviewed and updated: family history, medical history, social history, surgical history - Past Medical History coronary artery disease Additional medical history: hypothyroid. osteoarthritis - Surgical History Reports: coronary stent - Family History Positive for: non-pertinent - Social History Smoking Status: Heavy smoker Alcohol Use: Occasionally Drug Use: None Additional social history: , 2 sons Review of Systems Review of Systems: ROS: 10pt was reviewed & negative except for what was stated in HPI & below Physical Exam Physical Exam: Temp Pulse Resp BP Pulse Ox 36.5 C 72 16 106/64 92 03/14/18 15:00 03/14/18 15:00 03/14/18 15:00 03/14/18 15:00 03/14/18 15:00 Constitutional: no apparent distress, appears nourished Eyes: PERRL, anicteric sclera Ears, Nose, Mouth, Throat: moist mucous membranes, hearing normal Cardiovascular: regular rate and rhythym, no murmur, rub, or gallop, No edema Respiratory: no respiratory distress, no rales or rhonchi, clear to auscultation Gastrointestinal: normoactive bowel sounds, soft, non-tender abdomen Genitourinary: no bladder tenderness Skin: warm, normal color Musculoskeletal: full muscle strength Neurologic: AAOx3 Psychiatric: interacting appropriately, not anxious, not encephalopathic Lab Data & Imaging Review 03/14/18 11:00 03/14/18 11:00 WBC 14.89 10^3/uL (3.80-9.50) H 03/14/18 11:00 RBC 5.10 10^6/uL (4.18-5.33) 03/14/18 11:00 Hgb 16.1 g/dL (12.6-16.3) 03/14/18 11:00 Hct 48.7 % (38.0-47.0) H 03/14/18 11:00 MCV 95.5 fL (81.5-99.8) 03/14/18 11:00 MCH 31.6 pg (27.9-34.1) 03/14/18 11:00 MCHC 33.1 g/dL (32.4-36.7) 03/14/18 11:00 RDW 13.6 % (11.5-15.2) 03/14/18 11:00 Plt Count 283 10^3/uL (150-400) 03/14/18 11:00 MPV 9.9 fL (8.7-11.7) 03/14/18 11:00 Neut % (Auto) 72.6 % (39.3-74.2) 03/14/18 11:00 Lymph % (Auto) 20.5 % (15.0-45.0) 03/14/18 11:00 [place] % (Auto) 5.1 % (4.5-13.0) 03/14/18 11:00 Eos % (Auto) 0.6 % (0.6-7.6) 03/14/18 11:00 Baso % (Auto) 0.7 % (0.3-1.7) 03/14/18 11:00 Nucleat RBC Rel Count 0.0 % (0.0-0.2) 03/14/18 11:00 Absolute Neuts (auto) 10.81 10^3/uL (1.70-6.50) H 03/14/18 11:00 Absolute Lymphs (auto) 3.05 10^3/uL (1.00-3.00) H 03/14/18 11:00 Absolute Monos (auto) 0.76 10^3/uL (0.30-0.80) 03/14/18 11:00 Absolute Eos (auto) 0.09 10^3/uL (0.03-0.40) 03/14/18 11:00 Absolute Basos (auto) 0.10 10^3/uL (0.02-0.10) 03/14/18 11:00 Absolute Nucleated RBC 0.00 10^3/uL (0-0.01) 03/14/18 11:00 Immature Gran % 0.5 % (0.0-1.1) 03/14/18 11:00 Immature Gran # 0.08 10^3/uL (0.00-0.10) 03/14/18 11:00 PT 13.2 SEC (12.0-15.0) 03/14/18 11:00 INR 0.98 (0.83-1.16) 03/14/18 11:00 APTT 25.1 SEC (23.0-38.0) 03/14/18 11:00 D-Dimer 1.11 ug/mLFEU (0.00-0.50) H 03/14/18 11:00 Sodium 143 mEq/L (135-145) 03/14/18 11:00 Potassium 4.5 mEq/L (3.5-5.2) 03/14/18 11:00 Chloride 103 mEq/L (97-110) 03/14/18 11:00 Carbon Dioxide 28 mEq/l (22-31) 03/14/18 11:00 Anion Gap 12 mEq/L (8-16) 03/14/18 11:00 BUN 32 mg/dL (7-23) H 03/14/18 11:00 Creatinine 1.2 mg/dL (0.6-1.0) H 03/14/18 11:00 Estimated GFR 43 03/14/18 11:00 Glucose 108 mg/dL (70-100) H 03/14/18 11:00 Calcium 9.6 mg/dL (8.5-10.4) 03/14/18 11:00 Creatine Kinase 30 IU/L (0-156) 03/14/18 11:00 CK-MB (CK-2) Fraction 0.58 ng/mL (0.00-3.19) 03/14/18 11:00 Troponin I 0.575 ng/mL (0.000-0.034) H 03/14/18 17:35 NT-Pro-B Natriuret Pep 137 pg/mL (0-450) 03/14/18 11:00 Urine Color YELLOW 03/14/18 12:10 Urine Appearance CLEAR 03/14/18 12:10 Urine pH 7.0 (5.0-7.5) 03/14/18 12:10 Ur Specific [place] 1.016 (1.002-1.030) 03/14/18 12:10 Urine Protein NEGATIVE (NEGATIVE) 03/14/18 12:10 Urine Ketones NEGATIVE (NEGATIVE) 03/14/18 12:10 Urine Blood NEGATIVE (NEGATIVE) 03/14/18 12:10 Urine Nitrate NEGATIVE (NEGATIVE) 03/14/18 12:10 Urine Bilirubin NEGATIVE (NEGATIVE) 03/14/18 12:10 Urine Urobilinogen NEGATIVE EU (0.2-1.0) 03/14/18 12:10 Ur Leukocyte Esterase 1+ (NEGATIVE) H 03/14/18 12:10 Urine RBC 1-3 /hpf (0-3) 03/14/18 12:10 Urine WBC 1-3 /hpf (0-3) 03/14/18 12:10 Ur Epithelial Cells TRACE /lpf (NONE-1+) 03/14/18 12:10 Urine Glucose NEGATIVE (NEGATIVE) 03/14/18 12:10 Visualized and Interpreted Chest x-ray results: Yes Chest X-Ray results: normal Visualized and Interpreted EKG results: Yes EKG Interpretation: Positive for: normal sinsus rhythm Assessment & Plan Assessment: Dyspnea (Acute) Hypoxia (Acute) History of coronary artery disease (Acute) Interstitial lung disease (Acute) 82 yo F with hx of CAD pw sob/fatigue/jaw pain similar to [place] sxs # sob/fatigue/jaw pain: per patient that his her anginal equivalent. CXR and CTA obtained negative for PE/PNA. ECG non ischemic., intial trop negative. Will plan to admit to tele, monitor serial trops/ecgs. Stress test in am so long as trops remain negative. Has had similar presenation x 2, last in 07/2017 at which time cath showed widely patent LAD. # CAD: as above, will continue asa/statin # CKD: with baseline creatine of around 1.2 and currently at baseline # leukocytosis: persistently mildly elevated and currently at baseline # polycythemia: likelydue to chronic tobacco use and chronic hypoxia # observation status # DNR per patients request, she states she has paperwork to that effect as well as MDPOA assigned but not with her Patient new to my care. Old records reviewed and summarized as above. Care planr eviewed with ER doctor as above.
[2018-03-14] MEDS ORDERED: HEPARIN/DEXTROSE 500 ML IV SCH ×2 (19:45→20:00)
--- NOTE | 2018-03-14 19:47 | HOSPPROG ---
Hospitalist Progress Note Assessment/Plan: The patient's nurse contacted me this evening after the patient's follow-up troponin elevated to 0.575. I came to evaluate the patient and she denied any active chest pain or neck pain or jaw pain. She stated that her symptoms have really been over the past 2-3 weeks she gets significant shortness of breath with exertion. I reviewed the case with Dr. Saucedo on-call for Cardiology this evening and he recommended that we start her on a heparin drip and make her NPO after midnight in tentatively plan on cardiac catheterization tomorrow. These orders have all been placed and the patient was updated on the tentative plan. Objective: Vital Signs Temp Pulse Resp BP Pulse Ox 36.5 C 72 16 106/64 92 03/14/18 15:00 03/14/18 15:00 03/14/18 15:00 03/14/18 15:00 03/14/18 15:00 03/13/18 03/14/18 03/15/18 05:59 05:59 05:59 Intake Total 1050 Balance 1050 PT 13.2 SEC (12.0-15.0) 03/14/18 11:00 INR 0.98 (0.83-1.16) 03/14/18 11:00 ICD10 Worksheet Patient Problems: Problems Problem Status Onset Dyspnea Acute History of coronary artery disease Acute Hypoxia Acute Interstitial lung disease Acute Coronary artery disease Acute Neck pain, bilateral Acute Unstable angina Acute
[2018-03-14] MEDS ORDERED: HEPARIN 10,000 UNIT/10 ML MDV (1,000 UNIT/ML) IVP ONE (19:58)
[2018-03-14] MEDS ORDERED: HEPARIN 10,000 UNIT/10 ML MDV (1,000 UNIT/ML) IVP PRN (19:58)
[2018-03-14] MEDS ORDERED: MELATONIN 3 MG TAB PO PRN (20:50)
[2018-03-14] MEDS ORDERED: LEVOTHYROXINE 88 MCG TAB PO SCH (21:00)
[2018-03-14] MEDS ORDERED: ASPIRIN EC 81 MG TAB PO SCH (21:00)
[2018-03-14] MEDS: CARBOXYMETHYLCELLULOSE 1% 0.4 ML DROPERETTE EACHEYE SCH (22:35)
[2018-03-15 02:52] LABS: PLATELET COUNT 260 10^3/uL (150-400)
--- NOTE | 2018-03-15 09:01 | CPEKG ---
Heart Rate: 62 RR Interval: 968 P-R Interval: 176 QRSD Interval: 88 QT Interval: 428 QTC Interval: 435 P Purdum: 59 QRS Purdum: 56 T Wave Purdum: 71 EKG Severity - NORMAL ECG - EKG Impression: SINUS RHYTHM Electronically Signed By: Adalid Milligan 16-Mar-2018 08:52:53
[2018-03-15] MEDS ORDERED: fentaNYL 100 MCG/2 ML INJ ONE (09:44)
[2018-03-15] MEDS ORDERED: LIDOCAINE 1% 300 MG/30 ML SDV ONE (09:44)
[2018-03-15] MEDS ORDERED: MIDAZOLAM 2 MG/2 ML VIAL ONE (09:44)
[2018-03-15] MEDS ORDERED: IOPAMIDOL (ISOVUE-370) 150 ML BTL IV ONE (09:45)
[2018-03-15] MEDS ORDERED: DIAZEPAM 5 MG TAB PO ONE ×2 (09:49→09:53)
[2018-03-15] MEDS ORDERED: CLOPIDOGREL BISULFATE 75 MG TAB PO ONE (09:50)
[2018-03-15] MEDS ORDERED: FAMOTIDINE 20 MG TAB PO ONE (09:53)
[2018-03-15] MEDS ORDERED: NITROGLYCERIN 0.4 MG BTL SL PRN (09:53)
[2018-03-15] MEDS ORDERED: diphenhydrAMINE 25 MG CAP PO ONE ×2 (09:53→10:01)
[2018-03-15] MEDS ORDERED: ASPIRIN EC 325 MG TAB PO ONE ×2 (09:53→10:01)
[2018-03-15] MEDS ORDERED: TEMAZEPAM 15 MG CAP PO PRN (09:53)
[2018-03-15] MEDS ORDERED: FOLIC ACID 1 MG TAB PO SCH (10:00)
[2018-03-15] MEDS ORDERED: OMEGA-3 FATTY ACIDS 1,000 MG CAP PO SCH (10:00)
[2018-03-15] MEDS ORDERED: MULTIVITAMINS 1 EACH TAB PO SCH (10:00)
[2018-03-15] MEDS ORDERED: ATORVASTATIN CALCIUM 10 MG TAB PO SCH (10:00)
[2018-03-15] MEDS ORDERED: CHOLECALCIFEROL VIT D3 1,000 UNITS TAB PO SCH (10:00)
[2018-03-15] MEDS ORDERED: ASCORBIC ACID 500 MG TAB PO SCH (10:00)
[2018-03-15] MEDS ORDERED: FAMOTIDINE 20 MG TAB ONE (10:01)
[2018-03-15] MEDS ORDERED: DIAZEPAM 5 MG TAB ONE (10:02)
[2018-03-15] MEDS: CARBOXYMETHYLCELLULOSE 1% 0.4 ML DROPERETTE EACHEYE SCH (10:16)
--- NOTE | 2018-03-15 10:16 | PDPROPOC ---
Sedation Plan of Care Sedation Plan of Care: mental status noted, patient educated of risks, benefits , alternatives, patient can tolerate sedation ASA Classification: ASA 2 Planned drugs: fentanyl, midazolam Mallampati Score: Class 2 Mallampati Reference Image: Patient passed 3-3-2 rule?: Yes
--- NOTE | 2018-03-15 10:16 | PDHPUP ---
History & Physical Update H&P update statement: This history and physical update is based on an assessment of the patient which was completed after admission or registration (within 24 hours), but prior to the surgery/procedure. H&P update: H&P reviewed & patient examined, no change in patient's condition since H&P completed
--- NOTE | 2018-03-15 10:35 | GCON ---
[f rep st] CONSULTATION CARDIOLOGY CONSULTATION. DATE OF CONSULTATION: 03/15/2018 CHIEF COMPLAINT: Fatigue, jaw pain, shortness of breath. HISTORY OF PRESENT ILLNESS: This is an 82-year-old female with history of prior PCIs with last one a pproximately 5 years ago. The patient indicates that these PCIs were to her LAD artery. She indicat es in the last 3 weeks, she has been having increasing fatigue, leg weakness, and jaw pain. She says the symptoms are exactly the same as her prior symptoms before her prior PCIs. She did indicate hav ing full relief after PCI from the symptoms. Upon arrival to the emergency room, the patient did not have any ECG changes. Blood pressure was stable. However, the troponins did have a mild elevation. Currently, the patient is on a heparin drip. She denies any active chest pain at rest. Heart rate , blood pressure currently stable. PAST MEDICAL HISTORY: Significant for PCI, abdominal aortic aneurysm, hypertension, hypothyroidism, hyperlipidemia. HOME MEDICATIONS: Aspirin, atorvastatin, multivitamins, omega-3, folic acid, levothyroxine. SOCIAL HISTORY: No smoking. No drinking. FAMILY HISTORY: Noncontributory. REVIEW OF SYSTEMS: Patient denies any vision change. No headache. No jaw pain. No neck pain. No chest pain. No abdominal pain. No lower extremity pain. No neurologic. PHYSICAL EXAMINATION: VITAL SIGNS: Afebrile 96, blood pressure 130/70, heart rate 72, respiratory r ate 12, sat 95% on room air. HEENT: Pupils are equal, round, and reactive to light and accommodatio n. Extraocular motions intact. CARDIOVASCULAR: Regular rate and rhythm, S1, S2. LUNGS: Clear to auscultation bilaterally. ABDOMEN: Soft without any guarding. EXTREMITIES: No clubbing. No cyano sis. No edema. NEUROLOGIC: The patient is alert and oriented x3. LABORATORY DATA: Currently show white blood cell count 10, hemoglobin 15, hematocrit 45, platelet co unt 260. INR 0.9. D-dimer 1.1. Troponin 0.012, however, had been prior elevated at 0.57 with creat inine of 1.0. ASSESSMENT/PLAN: Fatigue, jaw pain. At this time, the patient's symptoms are similar to her anginal equivalent symptoms from years ago prior to percutaneous coronary intervention. Given her symptoms, as well as troponin elevation, I feel we should move forward with a heart catheterization to define her coronary anatomy. I explained the risks, possible complications of the procedure, including stro ke, bleeding, and possible , and the patient would like to proceed. We will schedule this proce dure later for this morning. /[id number]/MODL
--- NOTE | 2018-03-15 11:30 | CPIP ---
[f rep st] INVASIVE CARDIAC PROCEDURE DATE OF PROCEDURE: 03/15/2018 INDICATIONS FOR PROCEDURE: Non STEMI. PROCEDURE: 1. Nonselective right groin sheathogram. 2. Bilateral selective coronary angiography. 3. Left heart catheterization. 4. Left ventriculogram. HISTORY: Briefly, this is an 82-year-old female with coronary artery disease, who came in with penny rgy, shortness of breath, jaw pain. The patient was found to have elevated troponin. Given these is sues, the patient was consented for left heart catheterization. DESCRIPTION OF PROCEDURE: After informed consented, the patient was brought to [facility], where the right groin was prepped and draped in a sterile fashion. Using local lidocaine, a short 6-Tajik sheath wa s advanced in the right femoral artery, verified angiographically. Of note, there seemed to be aneur ysmal changes in the descending , so we up sized the sheath to a 25 cm sheath. A JL4 susan ter was advanced to the left coronary artery. Images of the left coronary artery revealed widely pat ent left main. Left circumflex artery was stented from its midportion to mid distal portion. The st ent had mild in-stent restenosis ranging from 20% to 30%. The distal circumflex appeared to be paten t. The LAD had stents from its midportion which were widely patent. There was a small diagonal jan ry coming off the mid stented portion which had a 90% ostial pinch, but had MIRNA-3 flow. After the i mages were obtained, the JL4 catheter was removed. The JR4 catheter was advanced to the right cooley ry artery. Images of the right coronary artery revealed normal ostial RCA. The proximal RCA had 30% to 40% tubular disease distally. The RPD and RPLS appeared to be healthy and free of disease. Afte r the images were obtained, the JR4 catheter was removed. The pigtail catheter was then advanced in the left ventricle. EDP was 15 mmHg. Left ventriculogram in the SELF projection showed EF of 65% wit h no wall motion abnormalities. There was no pull-back gradient between the LV and the aorta. Pigta il catheter was removed over an 0.035 wire. Right groin was closed with manual pressure. Patient to lerated the procedure well. No complications. IMPRESSION: 1. Widely patent stents in the left anterior descending with tiny pinched diagonal artery, most like ly chronic. 2. Patent stent in the left circumflex system with mild in-stent restenosis. 3. 30% to 40% disease proximally in the right coronary artery. 4. Normal ejection fraction. PLAN: The patient does not have an underlying coronary blockage to explain her current symptoms. We will continue with aggressive medical therapy. The patient will follow up with Dr. Dhillon as an outpa tient. /[id number]/MODL
--- NOTE | 2018-03-15 14:09 | ECHO ---
[email or web address] [address] Main: [phone] Fax: Transthoracic Echocardiogram Name: CASSIDY JOEL MR#: [id number] Study Date: 03/15/2018 Study Time: 11:48 AM Date of : 1935 Age: 82 year(s) Height: 167.6 cm (66 in.) Weight: 63.5 kg (140 lb.) BSA: 1.72 m2 Gender: Female Examination: Echo Indication: NSTEMI Image Quality: Adequate Contrast: Requested by: Andrzej Andino BP: 110 mmHg/70 mmHg Heart Rate: Rhythm: Indication: NSTEMI Procedure Staff Art Objects Salesperson: Radha Gary RDCS Reading Physician: Andrzej Andino MD Requesting Provider: Conclusions: Normal global systolic LV function. The ejection fraction is estimated to be 55-60 %. Mild mitral valve regurgitation is present. Mild aortic valve regurgitation is present. Measurements: Chambers Valvular Assessment AV/MV Valvular Assessment TV/PV Normal Normal Normal Name Value Range Name Value Range Name Value Range Ao Aranza (2D): 2.8 cm (1.4 cm-2.6 AV meanP mmHg ( - ) PV Vmax: 0.66 m/s (0.6 m/s-0.9 cm) CHANTAL (VTI): 1.5 cm ( - ) m/s) IVSd (2D): 1.6 cm (0.6 cm-1.1 MV E Vmax: 0.74 m/s ( - ) PV PGmax: 2 mmHg ( - ) cm) MV A Vmax: 0.65 m/s ( - ) LVDd (2D): 3.3 cm (3.9 cm-5.3 MV E/A: 1.14 ( - ) cm) MV PHT: 0.062 s ( - ) LVDs (2D): 2.3 cm (2.1 cm-4 cm) MVA (PHT): 3.5 s ( - ) LVPWd (2D): 1.3 cm ( - ) LVOTd 2.0 cm 2.0 cm mm LVEF (BP): 63 % (>=55 %) EF Range: 55-60 % RVDd(2D): 2.0 cm (1.9 cm-3.8 cmmm) Continued Measurements: Chambers Valvular Assessment AV/MV Valvular Assessment TV/PV Name Value Name Value Name Value LADs: 2.4 cm MV DecTime: 211 m/s CVP (est.): 5 mmHg LADs Lon.1 cm MV E' Septal: 0.07 m/s Patient: CASSIDY JOEL Study Date: 03/15/2018 Page 1 of 2 11:48 AM LA Area: 14.9 cm2 MV E/E' Septal: 10.10 RA Area: 12.9 cm2 MV E/E' Lateral: 9.10 Additional Vessels Name Value Ao Ascendin.0 cm Inferior Vena Cava: 1.1 cm Findings: Left Ventricle: Normal size left ventricle. No LV hypertrophy. Normal global systolic LV function. The ejection fraction is estimated to be 55-60 %. No regional wall motion abnormality. Normal diastolic LV function. Right Ventricle: Normal size right ventricle. Normal RV function. Left Atrium: The left atrium is normal in size. Right Atrium: The right atrium is normal in size. Mitral Valve: The mitral valve is normal in appearance and function. No mitral stenosis is present. Mild mitral valve regurgitation is present. Aortic Valve: The aortic valve is normal in appearance and function. Mild aortic valve regurgitation is present. No aortic valve stenosis is present. Tricuspid Valve: The tricuspid valve is normal in appearance and function. Trivial tricuspid valve regurgitation. The pulmonary artery pressure is normal. Pulmonic Valve: The pulmonic valve is normal in appearance and function. Trivial pulmonic valve regurgitation. Aorta: The aorta is normal. Normal size aortic root measuring 2.8 cm. Normal size ascending aorta measuring 3.0 cm. IVC: The IVC is normal sized. Pericardium: No pericardial effusion. No pleural effusion. Exam Comments: Patient supine post cath. (No Signature Object) Patient: CASSIDY JOEL Study Date: 03/15/2018 Page 2 of 2 11:48 AM [id number]
--- NOTE | 2018-03-15 14:55 | ASMTCMCOM ---
CM Note CM Note Notes: 03/15/2018 Case Management Note Pt admitted with history of CAD, dyspnea and hypoxia. Pt had heart cath today. Met w/pt to discuss d/c needs. Pt lives independently in her own home. Her son Allen [phone] (h) [phone] (c) and his Deneen live near by. Pt has housekeepers come every 2 weeks. Her son and grandchildren help with yardwork and house upkeep. Pt drives and is able to easily obtain groceries. Pt is independent in ADL's. Case Management d/c poc: anticipating home independent with follow up as directed. Case Management available if needs change. Date Signed: 03/15/2018 02:54 PM Electronically Signed By:Flor Ruiz RN
--- NOTE | 2018-03-15 15:07 | PDDCSUM ---
Discharge Summary Discharge Summary: Dates of service 03/14-03/15/18 Consultations: cardiology Procedures performed: cardiac catheterization Hospital course by problem: 82 yo F with hx of CAD pw sob/fatigue/jaw pain similar to MA sxs # sob/fatigue/jaw pain: per patient that his her anginal equivalent. CXR and CTA obtained negative for PE/PNA. ECG non ischemic., cardiac cath negative for flow limiting coronary disease and overall sxs felt to be unlikely due to cardiac disease. 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 # CAD: as above, will continue asa--recommended to hold statin as above # CKD: with baseline creatine of around 1.2 and currently at baseline # leukocytosis: persistently mildly elevated and currently at baseline # polycythemia: likelydue to chronic tobacco use and chronic hypoxia # DNR DC to home f/u with cardiology for ongoing mgmt > 35 min spent in dc more than half in coordination of care
--- NOTE | 2018-03-15 15:11 | ASDISCHSUM ---
Discharge Information Plan Status:Home with No Needs Medically Cleared to Leave:03/15/2018 Discharge Date:03/15/2018 CM D/C Disposition:Home, Routine, Self-Care ADT D/C Disposition:Home, Routine, Self-Care Projected Discharge Date:03/15/2018 Transportation at D/C:Family Discharge Delay Reason: Follow-Up Date:03/15/2018 Discharge Slot: Final Diagnosis: Placement Information Patient Contact Information Contact Name:MONTEZ Relationship:Darwin Address:[address] City:[place] Alternate Phone: [facility]/Zip Code:[place] [address] Email: Financial Information Financial Class:Medicare Advantage Plans Primary Plan Desc:[employer] PPO MEDICARE Primary Plan Number:[id number] Secondary Plan Desc: Secondary Plan Number: Assessment Information [facility] CM Progress Note CM Note CM Note Notes: 03/15/2018 Case Management Note Pt admitted with history of CAD, dyspnea and hypoxia. Pt had heart cath today. Met w/pt to discuss d/c needs. Pt lives independently in her own home. Her son Allen [phone] ([phone] (c) and his Deneen live near by. Pt has housekeepers come every 2 weeks. Her son and grandchildren help with yardwork and house upkeep. Pt drives and is able to easily obtain groceries. Pt is independent in ADL's. Case Management d/c poc: anticipating home independent with follow up as directed. Case Management available if needs change. Date Signed: 03/15/2018 02:54 PM Electronically Signed By:Flor Ruiz RN Intervention Information Intervention Type:*HAILE-Signed Date of Service:03/14/2018 04:04 PM Patient Type:Observation Staff Member:Gaye Shane Hours: Discipline: Severity: Comment:
--- NOTE | 2018-03-15 15:11 | ASMTLACE ---
[place] Length of stay for Answers: 1 day current admission Acuity / Level of Answers: No Care: Did the patient have an inpatient admission? Comorbidities - select Answers: Coronary Artery Disease all that apply # of Emergency department Answers: 1-2 visits in the last 6 months Score: 4 Date Signed: 03/15/2018 03:11 PM Electronically Signed By:Flor Ruiz RN
[2018-03-15 15:58] VITALS: BP 101/59
== END 2018-03-15 16:48 | disposition home or self-care (01) ==
LOC: F2W 14:53
PROVIDERS: ADMIT Hospitalist; ATTEND Internal Medicine
PROC: B2151ZZ Fluoroscopy of Left Heart using Low Osmolar Contrast (ICD-10-PCS; principal; 2018-03-15)
PROC: 4A023N7 Measurement of Cardiac Sampling and Pressure, Left Heart, Percutaneous Approach (ICD-10-PCS; principal; 2018-03-15)
PROC: B2111ZZ Fluoroscopy of Multiple Coronary Arteries using Low Osmolar Contrast (ICD-10-PCS; principal; 2018-03-15)
DX: R06.02 Shortness of breath (principal); R53.83 Other fatigue; R68.84 Jaw pain; R79.89 Other specified abnormal findings of blood chemistry; I25.10 Atherosclerotic heart disease of native coronary artery without angina pectoris; R09.02 Hypoxemia; D75.1 Secondary polycythemia; E86.9 Volume depletion, unspecified; D72.829 Elevated white blood cell count, unspecified; I71.4 Abdominal aortic aneurysm, without rupture; T82.855A Stenosis of coronary artery stent, initial encounter; N18.9 Chronic kidney disease, unspecified; I27.20 Pulmonary hypertension, unspecified; R91.1 Solitary pulmonary nodule; F17.210 Nicotine dependence, cigarettes, uncomplicated; J84.9 Interstitial pulmonary disease, unspecified; J44.9 Chronic obstructive pulmonary disease, unspecified; I12.9 Hypertensive chronic kidney disease with stage 1 through stage 4 chronic kidney disease, or unspecified chronic kidney disease; E03.9 Hypothyroidism, unspecified; I25.2 Old myocardial infarction; E78.5 Hyperlipidemia, unspecified; Z79.82 Long term (current) use of aspirin; Z95.5 Presence of coronary angioplasty implant and graft; Z66 Do not resuscitate
CPT/HCPCS: 71045; 71275; 93005; 93306; 93458; 97165; 99285; C1769; G0378; G8984; G8985; G8986; J1644; J2250; J3010; Q9967; 85520-90

== ENCOUNTER → 2018-04-07 | Outpatient (CLI) | payer OTHER | LOC: BMCIMAGING 17:00 | PROVIDERS: ATTEND Family Medicine | DX: S32.010A Wedge compression fracture of first lumbar vertebra, initial encounter for closed fracture (principal); M43.16 Spondylolisthesis, lumbar region ==

== ENCOUNTER → 2018-08-11 | Outpatient (CLI) | payer OTHER | LOC: FIMAGING 10:36 | PROVIDERS: ATTEND Neurological Surgery | DX: S32.010D Wedge compression fracture of first lumbar vertebra, subsequent encounter for fracture with routine healing (principal); S32.020D Wedge compression fracture of second lumbar vertebra, subsequent encounter for fracture with routine healing; M51.37 Other intervertebral disc degeneration, lumbosacral region ==

== ENCOUNTER 2018-08-24 19:54 | Emergency (ER) | payer OTHER ==
[2018-08-24] MEDS ORDERED: LET GEL TOPICAL 1 EA SYR TP ONE (20:08)
--- NOTE | 2018-08-24 20:14 | EDPHY ---
H & P Stated Complaint: fell down 1 step, left facial bruising- swelling Time Seen by Provider: 08/24/18 20:00 HPI/ROS: CHIEF COMPLAINT: Facial injury, fall HISTORY OF PRESENT ILLNESS: This is an 83-year-old female who fell forward, striking her face and landing on both knees. She was smoking a cigarette on her front porch when she stood up to put out the cigarette and pitched forward. She did not lose consciousness. She is taking Plavix. She reports some upper lip pain, pain and swelling around her left eye, left wrist pain, bilateral knee pain, and pain at the site of the left leg laceration. REVIEW OF SYSTEMS: A ten system review of systems was performed and is negative with the exception of the items mentioned in the HPI. Past medical history: COPD, oxygen at night Surgical history: Noncontributry Social history: She lives alone. Her three sons accompany her tonight. Smokes cigarettes. General: Cervical collar in place. The patient is in no acute distress. The patient is alert. Kristi Coma Score is 15 . Initial BP 186/105. Head: Normocephalic/atraumatic. No Siddiqui's sign. Periorbital ecchymoses OS. Swelling left forehead. There is a 1. Half cm laceration to the oral mucosa inside her left upper lip. This is not through and through. Dentition is intact without malocclusion. Neck: Nontender with palpation of the cervical spine. Trachea is midline. No pain with active range of motion of her neck. Cervical collar was removed by me at the time of my initial evaluation, around 8 5:00 p.m.. Eyes: PERRLA. EOMI. No entrapment. Small right eye subconjunctival hemorrhage. Ears nose and throat: No hemotympanum. Nares are patent and without clotted nasal blood. No dental injury or malocclusion. Airway is patent. Lungs: No rib tenderness, crepitus, or subcutaneous emphysema. Breath sounds are equal and audible bilaterally. No wheezes, rales, or rhonchi. Cardiac: Heart has regular rate and rhythm without murmur, rub, or gallop. Abdomen: Soft, nontender, and nondistended. No guarding or rebound. Bowel sounds are present. Back: No vertebral tenderness. Skin: Scattered upper extremity ecchymoses. Skin is warm and dry. Extremities: Abrasions and swelling of both knees. She has full active range of motion of her knees in no apparent ligamentous instability. There is a skin tear below the knee on the left. Pelvis is stable. Hips are nontender. Pulses: 2+ femoral and dorsalis pedis pulses bilaterally. Neuro: The patient is alert and oriented. Sensation is intact to light touch of all 4 extremities. Strength is 5 4+ over 5 with testing of major motor groups. Cranial nerves are normal as tested. PERRLA. EOMI. Facial expressions symmetric. Tongue midline. Hearing intact to spoken voice. - Personal History Current Tetanus Diphtheria and Acellular Pertussis (TDAP): Unsure Tetanus Vaccine Date: less than 10 years - Medical/Surgical History Hx Asthma: No Hx Chronic Respiratory Disease: Yes Hx Diabetes: No Hx Cardiac Disease: Yes Hx Renal Disease: No Hx Cirrhosis: No Hx Alcoholism: No Hx HIV/AIDS: No Hx Splenectomy or Spleen Trauma: No Other PMH: ischemic stroke, Cardiac disease- Dr. Hunter. -2 LAD stents- . -Stent- 1997. -Most recent echocardiogram on 03/06/16. 2. Hypercholesteremia. back problems. 3. Appendectomy. 4. part. Hysterectomy No uterus - Social History Smoking Status: Light smoker Constitutional: Initial Vital Signs Temperature (C) 36.6 C 08/24/18 20:02 Heart Rate 90 08/24/18 20:02 Respiratory Rate 18 08/24/18 20:02 Blood Pressure 186/105 H 08/24/18 20:02 O2 Sat (%) 94 08/24/18 20:02 O2 Delivery Mode Room Air Allergies/Adverse Reactions: No Known Allergies Allergy (Verified 06/28/18 12:18) Home Medications: Medication Instructions Recorded Levothyroxine [Synthroid 88 mcg 88 mcg PO HS 03/14/18 (*)] Atorvastatin Calcium [Lipitor 20 20 mg PO DAILY 06/28/18 mg (*)] Cholecalciferol Vit D3 [Vitamin D3 1,000 units PO DAILY 06/28/18 (*)] Melatonin [Melatonin 3 MG (*)] 3 mg PO HS 06/28/18 Multivitamins [Multivitamin (*)] 1 each PO DAILY 06/28/18 celeCOXIB [CeleBREX] 100 mg PO DAILY 06/28/18 Clopidogrel Bisulfate [Plavix (*)] 75 mg PO DAILY #60 tab 06/29/18 Medical Decision Making Procedures: CT of the head reviewed. Discussed with . Senescent features, left inferior orgbital rim fracture, minimally displaced. L maxillary sinus opacified with blood, nasal maxillary spine fracture. Xrays of both knees and left hand reviewed. No fracture or dislocation. Left knee skin tear cleaned and dressed by information technology associate. Laceration of inner oral mucosa does not need repair--it is small and does not gape. No active bleeding. She was able to ambulate in the ED. Admission was offered for observation ( given her age and the fact that she takes Plavis). She does not want to remain in the hospital, is eager to return home. Her sons (3) are present in the ED and will make certain that someone is with her over the next couple of days. She has an appointment with her PCP tomorrow and I have stressed the importance of keeping this appointment for another evaluation. Danger signs reviewed with patient and family. ENT follow up advised for orbital rim fracture. This should not need surgery. Ice and head elevation recommended. Differential Diagnosis: I considered a differential diagnosis of traumatic injury that includes but is not limited to intracranial hemorrhage, skull fracture, concussion, vertebral injury, spinal cord injury, intrathoracic injury, intra-abdominal injury, long bone fractures, contusions, abrasions, and lacerations. - Data Points Medications Given: Discontinued Medications Acetaminophen (Tylenol) 650 mg PO EDNOW ONE Stop: 08/24/18 22:17 Last Admin: 08/24/18 22:17 Dose: 650 mg Departure - Departure Disposition: Home, Routine, Self-Care Clinical Impression: Multiple contusions Fall Qualifiers: Encounter type: initial encounter Qualified Code(s): W19.XXXA - Unspecified fall, initial encounter Orbital floor fracture Qualifiers: Encounter type: initial encounter Fracture type: closed Laterality: left Qualified Code(s): S02.32XA - Fracture of orbital floor, left side, initial encounter for closed fracture Skin tear of lower leg without complication Qualifiers: Encounter type: initial encounter Laterality: left Qualified Code(s): S81.812A - Laceration without foreign body, left lower leg, initial encounter Condition: Good Instructions: Fall Prevention for Older Adults (ED), Contusion in Adults (ED), Skin Tear (ED), R.I.C.E. Treatment (ED), Hematoma (ED), Facial Fracture (ED) Additional Instructions: Take Tylenol for pain. Keep your appointment with Dr. Chamberlain tomorrow. Continue to sleep semi upright. This will help with your facial swelling. Ice your face for 20 min at a time every couple of hours while you are awake. It will take a couple of weeks for this swelling and bruising to go down. Things to watch out for--difficulty seeing out of your left eye. Inability to move your left eye back and forth and up and down. Headache. Confusion. Weakness on 1 side of your body. Be sure that you use your walker or your cane every time you are up. As you know, I recommend that someone stay with you tonight, tomorrow night might also be helpful. Let your family help you for couple of days. Make sure that you are able to get up and about with visability out of only one eye. I recommend that you follow up with librarian specialist. I have given you Dr. Mcdowell's number. Referrals: Yael Chamberlain MD [Primary Care Provider] - As per Instructions Dioni Mcdowell MD [Medical Doctor] - As per Instructions
[2018-08-24] MEDS ORDERED: ACETAMINOPHEN 325 MG TAB PO ONE (22:16)
[2018-08-24] MEDS ORDERED: ACETAMINOPHEN 325 MG TAB ONE (22:17)
[2018-08-24 22:54] VITALS: BP 161/97
== END 2018-08-24 22:54 | disposition home or self-care (01) ==
LOC: EDUNIT#
DX: S02.32XA Fracture of orbital floor, left side, initial encounter for closed fracture (principal); S01.511A Laceration without foreign body of lip, initial encounter; S81.812A Laceration without foreign body, left lower leg, initial encounter; W18.39XA Other fall on same level, initial encounter; Y92.018 Other place in single-family (private) house as the place of occurrence of the external cause; J44.9 Chronic obstructive pulmonary disease, unspecified; Z72.0 Tobacco use